=== PATIENT | female | born 1990 | race Caucasian/White ===

== ENCOUNTER 2019-10-16 20:37 | Emergency (ER) | payer BC, OTHER ==
[~2019-10-16] VITALS: Ht 167.7 cm; Wt 113.4 kg
[2019-10-16] MEDS ORDERED: NS IV 1000 ML 1,000 ML IV SCH ×2 (20:54→21:40)
--- NOTE | 2019-10-16 20:54 | ED Abdominal Pain ---
General Chief Complaint: Abdominal/GI Problems Stated Complaint: VOMITTING,DEHYDRATION,CRAMPING Nursing Triage Note: PT AMBULATE TO ROOM 06 WITH C/O N/V/D X2 DAYS. PT STATES SHE THINKS SHE WAS VOMITING DUE TO PAIN. Sepsis Screen: No Definite Risk Source of Information: Patient Exam Limitations: No Limitations History of Present Illness Date Seen by Provider: October 16, 2019 Time Seen by Provider: 20:43 Initial Comments Patient presents ER by private conveyance from home with chief complaint that yesterday she irritated her chronic back pain issue which cause nausea and vomiting. Her back pain is under control however now she cannot get rid of her nausea and vomiting. She rates her pain as a 5 out of 10 in the epigastric region which comes and goes and feels cramp-like. She is a type I diabetic who is been out of testing supplies for a couple weeks since she recently moved here from [place]. She does not have primary care. She has no insulin pump. She says prior to running out of testing supplies her fasting blood sugars around 150- 250. Patient says she feels like her blood sugar is running about 200-300 right now. She says she's having pain in her epigastric region read she's never had gallbladder problems before. She's had no surgeries or scopes on her abdomen. She's not having dysuria but she is having decreased urine and some constipation last couple days as well as inability to keep down fluids. Allergies and Home Medications Allergies Coded Allergies: No Known Drug Allergies (Unverified , 10/16/19) Patient Home Medication List Home Medication List Reviewed: Yes Review of Systems Review of Systems Constitutional: No chills, No diaphoresis EENTM: No Blurred Vision, No Double Vision Respiratory: Denies Cough, Denies Shortness of Air Cardiovascular: Denies Chest Pain, Denies Lightheadedness Gastrointestinal: See HPI, Abdominal Pain, Constipated; Denies Diarrhea, Denies Difficulty Swallowing; Nausea, Poor Appetite, Poor Fluid Intake, Vomiting Genitourinary: Denies Burning, Denies Discharge Musculoskeletal: see HPI; No back pain, No joint pain Psychiatric/Neurological: Denies Anxiety, Denies Depressed All Other Systems Reviewed Negative Unless Noted: Yes Past Raxfthm-Xbrskg-Baqqel Hx Patient Social History Alcohol Use: Denies Use Recreational Drug Use: No Smoking Status: Never a Smoker Recent Foreign Travel: No Contact w/Someone Who Travel: No Recent Infectious Disease Expo: No Physical Exam Vital Signs Vital Signs - First Documented 10/16/19 20:44 Temp 36.9 Pulse 107 Resp 18 B/P (MAP) 147/96 (113) O2 Delivery Room Air Capillary Refill : Less Than 3 Seconds Height/Weight/BMI Height: '" Weight: lbs. oz. kg; 40.00 BMI Method: General Appearance: mild distress, obese HEENT: PERRL/EOMI, pharynx normal Neck: full range of motion, normal inspection Respiratory: lungs clear, normal breath sounds, no respiratory distress, no accessory muscle use Cardiovascular: normal peripheral pulses, regular rate, rhythm Peripheral Pulses: 2+ Radial Pulses (R), 2+ Radial Pulses (L) Gastrointestinal: normal bowel sounds, soft, tenderness, other (negative for Spencer sign, Rovsing sign, McBurney's point tenderness or psoas signs) Extremities: normal range of motion, normal capillary refill Neurologic/Psychiatric: alert, normal mood/affect, oriented x 3 Skin: normal color, warm/dry Progress/Results/Core Measures Results/Orders Lab Results Laboratory Tests Test 10/16/19 21:00 10/16/19 21:08 Range/Units White Blood Count 10.3 4.3-11.0 10^3/uL Red Blood Count 4.92 4.35-5.85 10^6/uL Hemoglobin 15.4 11.5-16.0 G/DL Hematocrit 44 35-52 % Mean Corpuscular Volume 90 80-99 FL Mean Corpuscular Hemoglobin 31 25-34 PG Mean Corpuscular Hemoglobin Concent 35 32-36 G/DL Red Cell Distribution Width 13.6 10.0-14.5 % Platelet Count 437 H 130-400 10^3/uL Mean Platelet Volume 10.0 7.4-10.4 FL Neutrophils (%) (Auto) 81 H 42-75 % Lymphocytes (%) (Auto) 14 12-44 % Monocytes (%) (Auto) 5 0-12 % Eosinophils (%) (Auto) 0 0-10 % Basophils (%) (Auto) 0 0-10 % Neutrophils # (Auto) 8.3 H 1.8-7.8 X 10^3 Lymphocytes # (Auto) 1.4 1.0-4.0 X 10^3 Monocytes # (Auto) 0.6 0.0-1.0 X 10^3 Eosinophils # (Auto) 0.0 0.0-0.3 10^3/uL Basophils # (Auto) 0.0 0.0-0.1 10^3/uL Sodium Level 141 135-145 MMOL/L Potassium Level 4.0 3.6-5.0 MMOL/L Chloride Level 102 98-107 MMOL/L Carbon Dioxide Level 26 21-32 MMOL/L Anion Gap 13 5-14 MMOL/L Blood Urea Nitrogen 8 7-18 MG/DL Creatinine 0.83 0.60-1.30 MG/DL Estimat Glomerular Filtration Rate > 60 BUN/Creatinine Ratio 10 Glucose Level 165 H 70-105 MG/DL Calcium Level 9.4 8.5-10.1 MG/DL Corrected Calcium 9.3 8.5-10.1 MG/DL Total Bilirubin 6.5 H 0.1-1.0 MG/DL Aspartate Amino Transf (AST/SGOT) 764 H 5-34 U/L Alanine Aminotransferase (ALT/SGPT) 696 H 0-55 U/L Alkaline Phosphatase 283 H 40-136 U/L C-Reactive Protein High Sensitivity 2.38 H 0.00-0.50 MG/DL Total Protein 7.8 6.4-8.2 GM/DL Albumin 4.1 3.2-4.5 GM/DL Lipase 2073 H 8-78 U/L Serum Test, Qualitative NEGATIVE NEGATIVE Glucometer 162 H 70-110 MG/DL My Orders Orders - ISHAN,ANNIE Queen Ua Culture If Indicated (10/16/19 20:39) Ed Iv/Invasive Line Start (10/16/19 20:54) Ns Iv 1000 Ml (Sodium Chloride 0.9%) (10/16/19 20:54) Cbc With Automated Diff (10/16/19 20:54) Comprehensive Metabolic Panel (10/16/19 20:54) Lipase (10/16/19 20:54) Hs C Reactive Protein (10/16/19 20:54) Accucheck Stat ONCE (10/16/19 20:54) Pantoprazole Injection (Protonix Injecti (10/16/19 21:00) Ondansetron Injection (Zofran Injectio (10/16/19 21:00) Ketorolac Injection (Toradol Injection) (10/16/19 21:00) Ct Abdomen/Pelvis W (10/16/19 21:37) Ed Iv/Invasive Line Start (10/16/19 21:40) Ns Iv 1000 Ml (Sodium Chloride 0.9%) (10/16/19 21:40) Hcg,Qualitative Serum (10/16/19 21:51) Iohexol Injection (Omnipaque 350 Mg/Ml 1 (10/16/19 22:30) Received Contrast (Hold Metformin- Contr (10/16/19 22:30) Ns (Ivpb) (Sodium Chloride 0.9% Ivpb Bag (10/16/19 22:30) Medications Given in ED Current Medications Medications Dose Ordered Sig/Julieth Route Start Time Stop Time Status Last Admin Dose Admin Iohexol 100 ml ONCE ONCE IV 10/16/19 22:30 10/16/19 22:31 DC 10/16/19 22:27 100 ML Ketorolac Tromethamine 30 mg ONCE ONCE IVP 10/16/19 21:00 10/16/19 21:01 DC 10/16/19 21:00 30 MG Ondansetron HCl 8 mg ONCE ONCE IVP 10/16/19 21:00 10/16/19 21:01 DC 10/16/19 20:59 8 MG Pantoprazole 40 mg ONCE ONCE IV 10/16/19 21:00 10/16/19 21:01 DC 10/16/19 21:00 40 MG Sodium Chloride 100 ml ONCE ONCE IV 10/16/19 22:30 10/16/19 22:31 DC 10/16/19 22:28 80 ML Vital Signs/I&O 10/16/19 10/16/19 20:44 21:00 Temp 36.9 36.9 Pulse 107 Resp 18 B/P (MAP) 147/96 (113) O2 Delivery Room Air Blood Pressure Mean: 113 Progress Progress Note #1: Time: 20:57 Progress Note Gastroenteritis versus gastritis versus diabetic ketoacidosis versus pancreatitis versus gallbladder?. Plan to give fluids, Toradol, pantoprazole and ondansetron. We'll get some labs and urine from her. She has a aseptic presentation except for tachycardia and a nonacute abdomen with epigastric tenderness. Negative for Spencer sign. Progress Note #2: Time: 21:38 Progress Note The patient states her nausea is under control however her pain is about the same. She says is tolerable and does not want anything narcotic for pain. She has significantly elevated liver enzymes and a bilirubin of 6.5. She will likely need ERCP. We'll consult with general surgery. Diagnostic Imaging Diagonstic Imaging: CT Plain Films/CT/US/NM/MRI: abdomen, pelvis Comments [place] otitis with small pancreatic ascites. No pseudocyst. Query cholelithiasis. Reviewed: Reviewed by Me Consults : Consulting Physician: KASIA LAMB DO Consults Notes Discussed the case with Dr. Lamb and he would recommend she go for ERCP first. He would be happy to follow her up in the clinic to do outpatient cholecystectomy. Departure Impression Primary Impression: Choledocholithiasis Additional Impressions: Acquired hyperbilirubinemia Pancreatitis Qualified Codes: K85.80 - Other acute pancreatitis without necrosis or infection Disposition: XF SHT-TRM HOSP Condition: Stable Transfer Transfer Reason: Exceeds level of care (ERCP and GI not available at this hospital) Time Spoke to Accepting Phy: 22:00 Transfer Progress Notes 2199: Discussed case with triage nurse and she is paging Dr. Foster, internal medicine. We do not have GI or ERCP capability at this facility. Transfer Time: 23:20 Transfer Facility: [facility], [place]. Method of Transfer: EMS Copy Copies To 1: KASIA LAMB TITUS J October 16, 2019 20:54
[2019-10-16] MEDS ORDERED: KETOROLAC 30 MG/ML VIAL IVP ONE (21:00)
[2019-10-16] MEDS ORDERED: ONDANSETRON 4 MG/2 ML (SDV) Z0FRAN IVP ONE (21:00)
[2019-10-16] MEDS ORDERED: PANTOPRAZOLE 40 MG (PROTONIX) VIAL IV ONE (21:00)
[2019-10-16 21:09] LABS: BASOPHILS % (AUTO) 0 % (0-10); EOSINOPHILS % (AUTO) 0 % (0-10); HEMATOCRIT 44 % (35-52); HEMOGLOBIN 15.4 G/DL (11.5-16.0); LYMPHOCYTES # (AUTO) 1.4 X 10^3 (1.0-4.0); LYMPHOCYTES % (AUTO) 14 % (12-44); MEAN CORPUSCULAR HEMOGLOBIN 31 PG (25-34); MEAN CORPUSCULAR HGB CONC 35 G/DL (32-36); MEAN CORPUSCULAR VOLUME 90 FL (80-99); MONOCYTES # (AUTO) 0.6 X 10^3 (0.0-1.0); MONOCYTES % (AUTO) 5 % (0-12); NEUTROPHILS # (AUTO) 8.3 X 10^3 (1.8-7.8); NEUTROPHILS % (AUTO) 81 % (42-75); PLATELET COUNT 437 10^3/uL (130-400); RED CELL DISTRIBUTION WIDTH 13.6 % (10.0-14.5); WHITE BLOOD COUNT 10.3 10^3/uL (4.3-11.0)
[2019-10-16 21:18] LABS: ALBUMIN 4.1 GM/DL (3.2-4.5); CHLORIDE 102 MMOL/L (98-107); SODIUM 141 MMOL/L (135-145)
[2019-10-16 21:19] LABS: CALCIUM 9.4 MG/DL (8.5-10.1)
[2019-10-16 21:21] LABS: GLUCOSE 165 MG/DL (70-105); TOTAL PROTEIN 7.8 GM/DL (6.4-8.2)
[2019-10-16 21:22] LABS: BILIRUBIN,TOTAL 6.5 MG/DL (0.1-1.0); CARBON DIOXIDE 26 MMOL/L (21-32)
[2019-10-16 21:24] LABS: ALKALINE PHOSPHATASE 283 U/L (40-136)
[2019-10-16 21:25] LABS: CREATININE SERUM 0.83 MG/DL (0.60-1.30); GFR ESTIMATED > 60
[2019-10-16 21:26] LABS: BUN/CREATININE RATIO 10
[2019-10-16 21:27] LABS: ALANINE AMINOTRANSFERASE 696 U/L (0-55)
[2019-10-16 21:49] LABS: LIPASE 2073 U/L (8-78)
--- NOTE | 2019-10-16 21:55 | NUR ---
Report received from CADEN Duffy at this time to assume care of pt.
[2019-10-16] MEDS ORDERED: IOHEXOL 350 MG/ML 100 ML (OMNIPAQUE 350) VIAL IV ONE (22:30)
[2019-10-16] MEDS ORDERED: NS 100 ML (IVPB) BAG IV ONE (22:30)
[2019-10-16] MEDS ORDERED: HOLD METFORMIN - RECEIVED CONTRAST 20 ML VIAL IV SCH (22:30)
--- OUTSIDE RECORDS SUMMARY | 2019-10-16 22:34 | XMS REPORT | Continuity of Care Document ---
Author Organization Unknown Address Unknown Phone Unavailable Allergies Active Description Code Type Severity Reaction Onset Reported/Identified Relationship to Patient Clinical Status Yes No Known Drug Allergies [id number] Drug Allergy Unknown N/A 10/16/2019 Medications There is no data. Problems There is no data. Procedures There is no data. Results Test Result Range Complete blood count (CBC) with automate d white blood cell (WBC) differential - 10/16/19 21:00 Blood leukocytes automated count (number/volume) 10.3 10*3/uL 4.3-11.0 Blood erythrocytes automated count (number/volume) 4.92 10*6/uL 4.35-5.85 Venous blood hemoglobin measurement (mass/volume) 15.4 g/dL 11.5-16.0 Blood hematocrit (volume fraction) 44 % 35-52 Automated erythrocyte mean corpuscular volume 90 [ foz_us] 80-99 Automated erythrocyte mean corpuscular h emoglobin (mass per erythrocyte) 31 pg 25-34 Automated erythrocyte mean corpuscular h emoglobin concentration measurement (mass/volume) 35 g/dL 32-36 Automated erythrocyte distribution width ratio 13. 6 % 10.0- 14.5 Automated blood platelet count (count/volume) 437 10*3/uL 130-400 Automated blood platelet mean volume measurement 10.0 [foz_us] 7.4-10.4 Automated blood neutrophils/100 leukocytes 81 % 42-75 Automated blood lymphocytes/100 leukocytes 14 % 12-44 Blood monocytes/100 leukocytes 5 % 0-12 Automated blood eosinophils/100 leukocytes 0 % 0-10 Automated blood basophils/100 leukocytes 0 % 0-10 Blood neutrophils automated count (number/volume) 8.3 10*3 1.8-7.8 Blood lymphocytes automated count (number/volume) 1.4 10*3 1.0-4.0 Blood monocytes automated count (number/volume) 0. 6 10*3 0.0-1.0 Automated eosinophil count 0.0 10*3/uL 0 .0-0.3 Automated blood basophil count (count/volume) 0.0 10*3/uL 0.0-0.1 Comprehensive metabolic panel - 10/16/19 21:00 Serum or plasma sodium measurement (moles/volume) 141 mmol/L 135-145 Serum or plasma potassium measurement (moles/volume) 4.0 mmol/L 3.6-5.0 Serum or plasma chloride measurement (moles/volume) 102 mmol/L 98-107 Carbon dioxide 26 mmol/L 21-32 Serum or plasma anion gap determination (moles/volume) 13 mmol/L 5-14 Serum or plasma urea nitrogen measurement (mass/volume ) 8 mg/dL 7-18 Serum or plasma creatinine measurement (mass/volume) 0.83 mg/dL 0.60-1.30 Serum or plasma urea nitrogen/creatinine mass ratio 10 NRG Serum or plasma creatinine measurement w ith calculation of estimated glomerular filtration rate > NRG Serum or plasma glucose measurement (mass/volume) 165 mg/dL 70-105 Serum or plasma calcium measurement (mass/volume) 9.4 mg/dL 8.5-10.1 Serum or plasma total bilirubin measurement (mass/volu me) 6.5 mg/dL 0.1-1.0 Serum or plasma alkaline phosphatase ashley surement (enzymatic activity/volume) 283 U/L 40-136 Serum or plasma aspartate aminotransfera se measurement (enzymatic activity/volume) 764 U/L 5-34 Serum or plasma alanine aminotransferase measurement (enzymatic activity/volume) 696 U/L 0-55 Serum or plasma protein measurement (mass/volume) 7.8 g/dL 6.4-8.2 Serum or plasma albumin measurement (mass/volume) 4.1 g/dL 3.2-4.5 CALCIUM CORRECTED 9.3 mg/dL 8.5-10.1 Lipase - 10/16/19 21:00 Lipase 2073 U/L 8-78 Serum or plasma C reactive protein measu rement (mass/volume) - 10/16/19 21:00 Serum or plasma C reactive protein measurement (mass/v olume) 2.38 mg/dL 0.00-0.50 Serum or plasma choriogonadotropin (preg nate test) detection - 10/16/19 21:00 Serum or plasma choriogonadotropin ( test) de tection NEGATIVE NEGATIVE Capillary blood glucose measurement by g lucometer (mass/volume) - 10/16/19 21:08 Capillary blood glucose measurement by glucometer (mas s/volume) 162 mg/dL 70-110 Encounters ACCT No. Visit Date/Time Discharge Status Pt. Type Provider Facility Loc./Unit Complaint [id number] 10/16/2019 20:39:[address] Emergency ISHAN MARADIAGA, ANNIE Garcia [facility] ER VOMITTING,DEHYDRATION,CRAMPI NG
--- NOTE | 2019-10-16 23:09 | NUR ---
REPORT CALLED TO CADEN ALCALA AT [facility].
[2019-10-16 23:48] VITALS: BP 124/87
--- NOTE | 2019-10-17 06:06 | Diagnostic Imaging Report ---
PROCEDURE: CT abdomen and pelvis with contrast. TECHNIQUE: Multiple contiguous axial images were obtained through the abdomen and pelvis after administration of intravenous contrast. Auto Exposure Controls were utilized during the CT exam to meet ALARA standards for radiation dose reduction. INDICATION: Nausea, vomiting, diarrhea. No priors. There are findings consistent with acute pancreatitis with peripancreatic edema but no pseudocyst or loculated fluid collection. There are questionable findings for small stones or polyps adhered to the gallbladder wall. No bile duct dilatation. The liver density is consistent with underlying fatty infiltration. There is enhancement of the portal vein. Directional flow cannot be addressed at CT. No intra or extrahepatic bile duct dilatation. No radiodense stone along the course of the extrahepatic duct. The spleen, adrenals, and kidneys unremarkable. There is no bowel obstruction. No evidence for gastric outlet obstruction. There is follicular cyst in the left ovary. The uterus and adnexa appear nonacute. No pelvic ascites. The urinary bladder unremarkable. There is no diverticulitis, appendicitis or bowel obstruction. IMPRESSION: 1. Findings consistent with acute pancreatitis with peripancreatic edema but no loculated collection or pseudocyst. 2. Probable mild hepatic steatosis. 3. Indeterminate findings for small gallstones. No biliary dilatation or CT appreciable choledocholithiasis. Dictated by: Dictated on workstation # [id number]
== END 2019-10-16 23:48 | disposition short-term general hospital (02) ==
LOC: ER 20:39
DX: K80.50 Calculus of bile duct without cholangitis or cholecystitis without obstruction (principal); E80.6 Other disorders of bilirubin metabolism; K85.90 Acute pancreatitis without necrosis or infection, unspecified; E10.9 Type 1 diabetes mellitus without complications
CPT/HCPCS: 36415; 74177; 80053; 82962; 83690; 84703; 85025; 86141

== ENCOUNTER 2021-05-31 07:11 | Emergency (ER) | payer BC ==
[~2021-05-31] VITALS: Ht 167 cm; Wt 112.0 kg
[2021-05-31] MEDS ORDERED: NS IV 1000 ML 1,000 ML IV SCH (07:45)
[2021-05-31] MEDS ORDERED: ONDANSETRON 4 MG/2 ML (SDV) Z0FRAN IVP ONE ×2 (07:45→09:15)
[2021-05-31 07:52] LABS: BASOPHILS % (AUTO) 0 % (0-10); EOSINOPHILS % (AUTO) 0 % (0-10); HEMATOCRIT 47 % (35-52); HEMOGLOBIN 16.3 g/dL (11.5-16.0); LYMPHOCYTES # (AUTO) 1.4 10^3/uL (1.0-4.0); LYMPHOCYTES % (AUTO) 40 % (12-44); MEAN CORPUSCULAR HEMOGLOBIN 31 pg (25-34); MEAN CORPUSCULAR HGB CONC 35 g/dL (32-36); MEAN CORPUSCULAR VOLUME 87 fL (80-99); MEAN PLATELET VOLUME 10.3 fL (9.0-12.2); MONOCYTES # (AUTO) 0.5 10^3/uL (0.0-1.0); MONOCYTES % (AUTO) 13 % (0-12); NEUTROPHILS # (AUTO) 1.6 10^3/uL (1.8-7.8); NEUTROPHILS % (AUTO) 46 % (42-75); PLATELET COUNT 333 10^3/uL (130-400); WHITE BLOOD COUNT 3.5 10^3/uL (4.3-11.0)
[2021-05-31 08:06] LABS: ALBUMIN 3.9 GM/DL (3.2-4.5); POTASSIUM 3.6 MMOL/L (3.6-5.0)
[2021-05-31 08:07] LABS: CALCIUM 9.5 MG/DL (8.5-10.1)
[2021-05-31 08:08] LABS: TOTAL PROTEIN 7.9 GM/DL (6.4-8.2)
[2021-05-31 08:10] LABS: BILIRUBIN,TOTAL 0.5 MG/DL (0.1-1.0)
--- NOTE | 2021-05-31 08:10 | ED General ---
General Chief Complaint: COVID19 Suspect/Confirmed Stated Complaint: COVID +/VOMITING/DIABETIC Source of Information: Patient History of Present Illness Date Seen by Provider: May 31, 2021 Time Seen by Provider: 07:28 Initial Comments PT ARRIVES VIA POV FROM HOME PT STATES SHE IS COVID + PT BEGAN HAVING COVID-19 SYMPTOMS ON 12/19/20--SUBJECTIVE FEVER/CHILLS, HEADACHE, BODY ACHES, COUGH, SHORTNESS OF BREATH FATIGUE, ETC. SHE STATES THOSE SYMPTOMS ARE GETTING BETTER HAD ROUTINE SCHEDULED APPOINTMENT AT [facility] ON Wednesday12/26/20 AND WAS TESTED FOR FLU, STREP AND COVID AT THAT TIME, AND TESTED + FOR COVID-19. NO RX'S GIVEN. PT STATES OVER 24 HOURS AGO, SHE BEGAN HAVING NAUSEA AND VOMITING AND CAN'T KEEP ANYTHING DOWN. HAS NOT ATTEMPTED TO CONTACT [facility] FOR THIS PROBLEM PT STATES SHE IS "DRINKING WATER LIKE CRAZY" "BUT I CAN'T KEEP IT DOWN" --HAS VOMITED AT LEAST 5 TIMES TODAY NO DIARRHEA NO ABDOMINAL PAIN HAS BEEN URINATING ALOT. PT IS INSULIN DEPENDENT DIABETIC, WITH INSULIN PUMP HAS NOT BEEN CHECKING BLOOD SUGARS--STATES HER MONITOR DOESN'T WORK. DID NOT DISCUSS THIS AT HER REGULAR VISIT ON WEDNESDAY PT HAS NOT HAD COVID-19 VACCINE PCP: [facility] Allergies and Home Medications Allergies Coded Allergies: No Known Drug Allergies (Unverified , 10/16/19) Patient Home Medication List Home Medication List Reviewed: Yes Nitrofurantoin Monohyd/M-Cryst (Macrobid 100 mg Capsule) 100 Mg Capsule, 1 TAB PO BID Prescribed by: FREDRICK MAYERS on 05/31/21 09 Ondansetron (Ondansetron Odt) 8 Mg Tab.rapdis, 8 MG PO Q6H Prescribed by: FREDRICK MAYERS on 05/31/21 09 Review of Systems Review of Systems Constitutional: see HPI EENTM: see HPI Respiratory: see HPI Cardiovascular: no symptoms reported Gastrointestinal: see HPI Genitourinary: see HPI Musculoskeletal: see HPI Skin: no symptoms reported Psychiatric/Neurological: See HPI Hematologic/Lymphatic: No Symptoms Reported Immunological/Allergic: no symptoms reported Past Qkpcfub-Tctejy-Dbusiu Hx Seasonal Allergies Seasonal Allergies: Yes Past Medical History Surgeries: No Respiratory: No Cardiac: No Neurological: Yes ("PINCHED NERVE IN BACK") Genitourinary: No Gastrointestinal: No Musculoskeletal: Yes (L WRIST) Chronic Back Pain, Fractures Endocrine: Yes Diabetes, Insulin dep HEENT: No Cancer: No Psychosocial: Yes Depression Integumentary: Yes Eczema Blood Disorders: No Physical Exam Vital Signs Vital Signs - First Documented 05/31/21 07:27 Temp 36.1 Pulse 131 Resp 20 B/P (MAP) 153/89 (110) Pulse Ox 96 O2 Delivery Room Air Capillary Refill : Height, Weight, BMI Height: '" Weight: lbs. oz. kg; 40.00 BMI Method: General Appearance: No Apparent Distress, WD/WN, Other (DOES NOT APPEAR ILL OR TO BE IN ANY DISCOMFORT OR DISTRESS. ) HEENT: PERRL/EOMI, Normal ENT Inspection Neck: Normal Inspection Respiratory: Chest Non Tender, Normal Breath Sounds, No Accessory Muscle Use, No Respiratory Distress Cardiovascular: No Edema, No JVD, No Murmur, Normal Peripheral Pulses, Tachycardia Gastrointestinal: Normal Bowel Sounds, No Organomegaly, No Pulsatile Mass, Non Tender, Soft Back: Normal Inspection, No CVA Tenderness, No Vertebral Tenderness Extremity: Normal Capillary Refill, Normal Inspection, Normal Range of Motion, Non Tender, No Calf Tenderness, No Pedal Edema Neurologic/Psychiatric: Alert, Oriented x3, No Motor/Sensory Deficits, Normal Mood/Affect, 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 Norm as Tested Skin: Normal Color, Warm/Dry Focused Exam Sepsis Stage: Ruled Out Possible Source: Other (PULMONARY OR GI) Lactate Level 05/31/21 07:40: Lactic Acid Level 0.82 Time of Focused Exam: 09:00 Respiratory: Normal Breath Sounds, No Accessory Muscle Use, No Respiratory Distress Cardiovascular: Regular Rate, Rhythm, No Murmur Capillary Refill: Less Than 3 Seconds Skin: normal color, warm/dry Lactic Acid Level Laboratory Tests Test 05/31/21 07:40 Lactic Acid Level 0.82 MMOL/L (0.50-2.00) Within 3hrs of presentation: Admin fluids, Focus exam, Lactate level Progress/Results/Core Measures Suspected Sepsis SIRS Temperature: Pulse: Respiratory Rate: Laboratory Tests 05/31/21 07:40: White Blood Count 3.5L Blood Pressure / Mean: 05/31/21 07:40: Lactic Acid Level 0.82 Laboratory Tests 05/31/21 07:40: Creatinine 0.91, Platelet Count 333, Total Bilirubin 0.5 Results/Orders Lab Results Laboratory Tests Test 05/31/21 07:40 05/31/21 08:39 Range/Units White Blood Count 3.5 L 4.3-11.0 10^3/uL Red Blood Count 5.33 H 3.80-5.11 10^6/uL Hemoglobin 16.3 H 11.5-16.0 g/dL Hematocrit 47 35-52 % Mean Corpuscular Volume 87 80-99 fL Mean Corpuscular Hemoglobin 31 25-34 pg Mean Corpuscular Hemoglobin Concent 35 32-36 g/dL Red Cell Distribution Width 13.1 10.0-14.5 % Platelet Count 333 130-400 10^3/uL Mean Platelet Volume 10.3 9.0-12.2 fL Immature Granulocyte % (Auto) 0 % Neutrophils (%) (Auto) 46 42-75 % Lymphocytes (%) (Auto) 40 12-44 % Monocytes (%) (Auto) 13 H 0-12 % Eosinophils (%) (Auto) 0 0-10 % Basophils (%) (Auto) 0 0-10 % Neutrophils # (Auto) 1.6 L 1.8-7.8 10^3/uL Lymphocytes # (Auto) 1.4 1.0-4.0 10^3/uL Monocytes # (Auto) 0.5 0.0-1.0 10^3/uL Eosinophils # (Auto) 0.0 0.0-0.3 10^3/uL Basophils # (Auto) 0.0 0.0-0.1 10^3/uL Immature Granulocyte # (Auto) 0.0 0.0-0.1 10^3/uL Erythrocyte Sedimentation Rate 36 H 0-20 MM/HR D-Dimer 0.64 H 0.00-0.49 UG/ML Sodium Level 136 135-145 MMOL/L Potassium Level 3.6 3.6-5.0 MMOL/L Chloride Level 104 98-107 MMOL/L Carbon Dioxide Level 14 L 21-32 MMOL/L Anion Gap 18 H 5-14 MMOL/L Blood Urea Nitrogen 14 7-18 MG/DL Creatinine 0.91 0.60-1.30 MG/DL Estimat Glomerular Filtration Rate 73 BUN/Creatinine Ratio 15 Glucose Level 86 70-105 MG/DL Lactic Acid Level 0.82 0.50-2.00 MMOL/L Calcium Level 9.5 8.5-10.1 MG/DL Corrected Calcium 9.6 8.5-10.1 MG/DL Magnesium Level 1.9 1.6-2.4 MG/DL Total Bilirubin 0.5 0.1-1.0 MG/DL Aspartate Amino Transf (AST/SGOT) 26 5-34 U/L Alanine Aminotransferase (ALT/SGPT) 13 0-55 U/L Alkaline Phosphatase 90 40-136 U/L Lactate Dehydrogenase 254 H 125-220 U/L Total Creatine Kinase 127 29-168 U/L Creatine Kinase MB 0.5 <6.6 NG/ML Myoglobin 92.9 H 10.0-92.0 NG/ML C-Reactive Protein High Sensitivity 3.90 H 0.00-0.50 MG/DL B-Type Natriuretic Peptide < 10.0 <100.0 PG/ML Total Protein 7.9 6.4-8.2 GM/DL Albumin 3.9 3.2-4.5 GM/DL Amylase Level 38 25-125 U/L Lipase 12 8-78 U/L Beta-Hydroxybutyrate (Chem panel) 3.05 H 0.00-0.27 MMOL/L Serum Test, Qualitative NEGATIVE NEGATIVE Urine Color YELLOW Urine Clarity SL CLOUDY Urine pH 6.0 5-9 Urine Specific [place] 1.025 H 1.016-1.022 Urine Protein 3+ H NEGATIVE Urine Glucose (UA) NEGATIVE NEGATIVE Urine Ketones 2+ H NEGATIVE Urine Nitrite NEGATIVE NEGATIVE Urine Bilirubin 2+ H NEGATIVE Urine Urobilinogen 1.0 < = 1.0 MG/DL Urine Leukocyte Esterase NEGATIVE NEGATIVE Urine RBC (Auto) 3+ H NEGATIVE Urine RBC 50-100 H /HPF Urine WBC 5-10 H /HPF Urine Squamous Epithelial Cells 0-2 /HPF Urine Crystals NONE /LPF Urine Bacteria FEW H /HPF Urine Casts PRESENT /LPF Urine Hyaline Casts 2-5 H /LPF Urine Granular Casts 2-5 H /LPF Urine Red Blood Cell Casts 0-2 H /LPF Urine Mucus SMALL H /LPF Urine Culture Indicated CULTURE PENDING My Orders Orders - FREDRICK MAYERS DO Ed Iv/Invasive Line Start (05/31/21 07:41) Ekg Tracing (05/31/21 07:41) Monitor-Rhythm Ecg Trace Only (05/31/21 07:41) Amylase (12/25/21 07:41) Bnp Jose L (05/31/21 07:41) Cbc With Automated Diff (05/31/21 07:41) Comprehensive Metabolic Panel (05/31/21 07:41) Creatine Kinase (05/31/21 07:41) Creatine Kinase Mb (05/31/21 07:41) Hs C Reactive Protein (05/31/21 07:41) Fibrin Degradation Products (05/31/21 07:41) Hcg,Qualitative Serum (05/31/21 07:41) Lactic Acid Analyzer (05/31/21 07:41) Lipase (05/31/21 07:41) Magnesium (05/31/21 07:41) Ua Culture If Indicated (05/31/21 07:41) Blood Culture (05/31/21 07:41) Erythrocyte Sedimentation Rate (05/31/21 07:41) Myoglobin Serum (05/31/21 07:41) Chest 1 View, Ap/Pa Only (05/31/21 07:41) LDH (05/31/21 07:41) Urine Culture (05/31/21 07:41) Ed Iv/Invasive Line Start (05/31/21 07:41) Vital Signs Adult Sepsis Patie Q15M (05/31/21 07:41) O2 (05/31/21 07:41) Remove Rings In Anticipation O (05/31/21 07:41) Ed Iv/Invasive Line Start (05/31/21 07:41) Ns Iv 1000 Ml (Sodium Chloride 0.9%) (05/31/21 07:45) Ondansetron Injection (Zofran Injectio (05/31/21 07:45) Covid-19 External Lab Results (05/31/21 08:20) Beta Hydroxybutyrate (05/31/21 08:41) Ed Iv/Invasive Line Start (05/31/21 08:41) Lactated Ringers (Lr 1000 Ml Iv Solution (05/31/21 08:45) Ondansetron Injection (Zofran Injectio (05/31/21 09:15) Rx-Nitrofurantoin [place] (Rx-Macrobid) (05/31/21 09:41) Rx-Ondansetron Po (Rx-Zofran Po) (05/31/21 09:41) Medications Given in ED Current Medications Medications Dose Ordered Sig/Julieth Route Start Time Stop Time Status Last Admin Dose Admin Lactated Ringer's 1,000 ml @ 0 mls/hr Q0M ONCE IV 05/31/21 08:45 05/31/21 08:46 DC 05/31/21 09:30 1,000 MLS/HR Ondansetron HCl 4 mg ONCE ONCE IVP 05/31/21 07:45 05/31/21 07:46 DC 05/31/21 07:49 4 MG Ondansetron HCl 4 mg ONCE ONCE IVP 05/31/21 09:15 05/31/21 09:16 DC 05/31/21 09:30 4 MG Vital Signs/I&O 05/31/21 07:27 Temp 36.1 Pulse 131 Resp 20 B/P (MAP) 153/89 (110) Pulse Ox 96 O2 Delivery Room Air Capillary Refill : Progress Note : Progress Note PLACED IN ISOLATION ROOM PPE WORN AT ALL TIMES GIVEN IV FLUIDS AND ZOFRAN WITH IMPROVEMENT IN SYMPTOMS NO VOMITING DURING ER STAY NO COUGH NO FEVER NO HYPOXIA NO DIARRHEA HEART RATE DOWN WITH FLUIDS PT NOT A CANDIDATE FOR MAB DUE TO ONSET OF SYMPTOMS >10 DAYS ECG Initial ECG Impression Date: May 31, 2021 Initial ECG Impression Time: 07:49 Initial ECG Rate: 105 Initial ECG Rhythm: S.Tach Diagnostic Imaging Comments CXR--PER RADIOLOGIST REPORT AT 0835 FINDINGS: Lungs demonstrate no alveolar consolidation. No significant interstitial changes. There is no effusion. There is no pneumothorax. Heart size and mediastinal contours are appropriate. Pulmonary vascularity appears normal. IMPRESSION: 1. Lungs appear clear without current evidence of pneumonia. Reviewed: Reviewed by Me Departure Impression Primary Impression: COVID-19 virus infection Additional Impressions: Insulin dependent diabetes mellitus UTI (urinary tract infection) Disposition: 01 HOME, SELF-CARE Condition: Improved Departure-Patient Inst. Decision time for Depature: 09:35 Referrals: NO,LOCAL PHYSICIAN (PCP) Primary Care Physician [facility] Patient Instructions: COVID-19 (DC), Preventing the Spread of an Infectious Disease, Urinary Tract Infection, Adult (DC) Add. Discharge Instructions: CLEAR LIQUIDS--WATER, BROTH, JELLO, GATORADE BRATS DIET--BANANAS, RICE, APPLESAUCE, TOAST, SALTINES CONTINUE YOUR CURRENT MEDICATIONS PRESCRIBED GET NEW GLUCOSE MONITOR SOON POSSIBLE FOLLOW UP WITH [facility] IN 1-2 DAYS IF NO BETTER, RETURN TO ER IF WORSE CONTINUE QUARANTINE FOR ANOTHER WEEK, YOU ARE STILL HAVING SYMPTOMS All discharge instructions reviewed with patient and/or family. Voiced understanding. Scripts Nitrofurantoin Monohyd/M-Cryst (Macrobid 100 mg Capsule) 100 Mg Capsule 1 TAB PO BID, #20 CAP Prov: FREDRICK MAYERS DO 05/31/21 Ondansetron (Ondansetron Odt) 8 Mg Tab.rapdis 8 MG PO Q6H, #10 TAB Prov: FREDRICK MAYERS DO 05/31/21 FREDRICK MAYERS DO May 31, 2021 08:10
[2021-05-31 08:12] LABS: CREATININE SERUM 0.91 MG/DL (0.60-1.30)
[2021-05-31 08:15] LABS: MAGNESIUM 1.9 MG/DL (1.6-2.4)
--- NOTE | 2021-05-31 08:18 | Diagnostic Imaging Report ---
INDICATION: COVID positive. Evaluate for pneumonia. FINDINGS: Lungs demonstrate no alveolar consolidation. No significant interstitial changes. There is no effusion. There is no pneumothorax. Heart size and mediastinal contours are appropriate. Pulmonary vascularity appears normal. IMPRESSION: 1. Lungs appear clear without current evidence of pneumonia. Dictated by: Dictated on workstation # [id number]
[2021-05-31 08:20] LABS: ERYTHROCYTE SEDIMENTATION RATE 36 MM/HR (0-20)
[2021-05-31 08:23] LABS: CREATINE KINASE MB 0.5 NG/ML (<6.6)
[2021-05-31] MEDS ORDERED: LACTATED RINGERS 1,000 ML IV ONE (08:45)
[2021-05-31 09:02] LABS: CLARITY,URINE SL CLOUDY; COLOR,URINE YELLOW; GLUCOSE, URINE (UA) NEGATIVE (NEGATIVE); KETONES,URINE 2+ (NEGATIVE); LEUKOCYTE ESTERASE ,URINE NEGATIVE (NEGATIVE); NITRITE,URINE NEGATIVE (NEGATIVE); PROTEIN,URINE 3+ (NEGATIVE)
[2021-05-31 09:12] LABS: BACTERIA,URINE FEW /HPF; RBC,URINE 50-100 /HPF; SQUAMOUS EPITHELIAL CELL,UR 0-2 /HPF
[2021-05-31 09:13] LABS: RED BLOOD CELL CASTS,URINE 0-2 /LPF
[2021-05-31 09:14] LABS: BILIRUBIN,URINE 2+ (NEGATIVE)
[2021-05-31] MEDS ORDERED: RX-NITROFURANTOIN 100 MG (MACROBID) CAP PPK#2 PO STA (09:41)
[2021-05-31] MEDS ORDERED: RX-ONDANSETRON 4 MG ODT (ZOFRAN) PPK #4 PO STA (09:41)
[2021-05-31] MEDS ORDERED: ONDA8TAB13 PO (09:41)
[2021-05-31] MEDS ORDERED: NITR-65 PO (09:41)
[2021-05-31 11:09] VITALS: BP 122/82
== END 2021-05-31 11:09 | disposition home or self-care (01) ==
LOC: EDUNIT# 07:11 → ER 07:14
DX: U07.1 COVID-19 (principal); N39.0 Urinary tract infection, site not specified; E11.9 Type 2 diabetes mellitus without complications; Z79.4 Long term (current) use of insulin; Z32.02 Encounter for pregnancy test, result negative
CPT/HCPCS: 36415; 71045; 80053; 81000; 82010; 82150; 82550; 82553; 83605; 83615; 83690; 83735; 83874; 83880; 84703; 85025; 85379; 85652; 86141; 87040; 87088; 93005; 93041